=== PATIENT | female | born 1960 | race Caucasian/White ===

== ENCOUNTER → 2025-02-24 | Outpatient (CLI) | payer OTHER ==
[2025-02-24 21:57] VITALS: PULSE 61; RESP 12
[2025-02-24 22:29] VITALS: PULSE 61; RESP 12
[2025-02-24 23:04] VITALS: PULSE 57; RESP 12
[2025-02-24 23:30] VITALS: PULSE 55; RESP 12
[2025-02-25] VITALS (11 sets, daily range): PULSE 53–67; RESP 12–14
== END | disposition home or self-care (01) ==
LOC: SLP 20:34 → EDBD 03-30 20:30
PROVIDERS: ATTEND Family Medicine
DX: G47.33 Obstructive sleep apnea (adult) (pediatric) (principal); R06.83 Snoring; I10 Essential (primary) hypertension; R53.83 Other fatigue; G47.00 Insomnia, unspecified; F41.8 Other specified anxiety disorders
CPT/HCPCS: 95810

== ENCOUNTER → 2025-02-27 | Outpatient (CLI) | payer OTHER ==
[2025-02-27 21:57] VITALS: PULSE 64; RESP 14
[2025-02-27 22:30] VITALS: PULSE 58; RESP 12
[2025-02-27 22:51] VITALS: PULSE 64; RESP 16
[2025-02-27 23:00] VITALS: PULSE 64; RESP 12
[2025-02-27 23:30] VITALS: PULSE 62; RESP 12
[2025-02-28] VITALS (11 sets, daily range): PULSE 54–64; RESP 12–14
== END | disposition home or self-care (01) ==
LOC: EDBD → SLP 20:31 → EDUNIT# 04-06 20:30
PROVIDERS: ATTEND Family Medicine
DX: G47.33 Obstructive sleep apnea (adult) (pediatric) (principal)
CPT/HCPCS: 95811